=== PATIENT | male | born 1985 | race Two or more races ===

== ENCOUNTER 2016-11-06 23:11 | Emergency (ER) | payer BC ==
[~2016-11-06] VITALS: Ht 190.5 cm; Wt 97.2 kg
[2016-11-07 00:19] LABS: BLOOD UREA NITROGEN 18 mg/dL (7-18)
[2016-11-07 00:26] LABS: IS PT STATUS REG ER OR PRE ER? YES
[2016-11-07 01:10] VITALS: BP 129/81
== END 2016-11-07 01:34 | disposition home or self-care (01) ==
LOC: ED 11-07 01:28
DX: R07.89 Other chest pain (principal); G56.01 Carpal tunnel syndrome, right upper limb
CPT/HCPCS: 36415; 71010; 80048; 82040; 84484; 85025; 93005; 99285